=== PATIENT | female | born 1970 | race Caucasian/White ===

== ENCOUNTER 2023-11-11 11:18 | Emergency (ER) | payer OTHER ==
[~2023-11-11] VITALS: Ht 160 cm; Wt 113.6 kg
[2023-11-11 11:29] VITALS: TEMP 98.2
[2023-11-11] MEDS ORDERED: Ketorolac 30 MG/ML VIAL IV ONE (12:15)
[2023-11-11] MEDS ORDERED: Iohexol 300 - 100 ML VIAL IV ONE (12:30)
[2023-11-11] MEDS ORDERED: NS 100 ML IV SCH (12:33)
[2023-11-11 12:37] LABS: BASO # 0.1 K/mm3 (0.0-0.2); BASO % 0.5 % (0.0-2.0); EOS # 0.1 K/mm3 (0.0-0.7); EOS % 0.8 % (0.0-4.0); GRAN # 8.9 K/mm3 (1.4-6.5); GRAN % 76.8 % (42.2-75.2); HEMATOCRIT 45.1 % (37.0-47.0); LYMPH # 1.8 K/mm3 (1.2-3.4); LYMPH % 15.3 % (20.0-51.0); MEAN CELL VOLUME 93 fl (80.0-100.0); MEAN CORPUSCULAR HEMOGLOBIN 31 pg (27-31); MEAN CORPUSCULAR HGB CONC 33 g/dl (33.0-37.0); MEAN PLATELET VOLUME 11.7 fl (7.4-10.4); MONO # 0.7 K/mm3 (0.1-0.6); MONO % 5.7 % (1.7-9.3); PLATELET COUNT 250 K/mm3 (130-400); RED BLOOD COUNT 4.86 M/mm3 (4.10-5.30); REDCELL DISTRIBUTION WIDTH-CV 13.3 % (11.5-14.5)
[2023-11-11 12:51] LABS: ALANINE AMINOTRANSFERASE 26 U/L (0-55); ALBUMIN 3.7 g/dL (3.5-5.0); ALKALINE PHOSPHATASE 136 U/L (40-150); ANION GAP 8 mmol/L (7-16); AST,SGOT 23 U/L (5-34); BILIRUBIN,TOTAL 0.5 mg/dL (0.2-1.2); BLOOD UREA NITROGEN 11 mg/dL (10-20); CALCIUM 9.4 mg/dL (8.4-10.2); CHLORIDE 106 mEq/L (98-107); CREATININE, serum 1.04 mg/dL (0.57-1.11); GLUCOSE 105 mg/dL (70-99); LIPASE 26 U/L (8-78); POTASSIUM 3.5 mEq/L (3.5-4.5); SODIUM 137 mEq/L (136-145); TOTAL PROTEIN 7.8 g/dl (6.2-8.1)
[2023-11-11 13:04] LABS: TROPONIN-I < 0.010 ng/mL (0.00-0.033)
[2023-11-11] MEDS ORDERED: Mag/Al Hydrox/Simeth Susp 30 ML CUP PO ONE (13:30)
[2023-11-11] MEDS ORDERED: Ondansetron 4 MG/2 ML VIAL IV ONE (13:30)
[2023-11-11] MEDS ORDERED: ZOFRAN ODT4 MG PO (13:52)
[2023-11-11 14:07] VITALS: BP 166/108; PULSE 62
[2023-11-12] MEDS ORDERED: PROTONIX 40MG T40 MG PO (01:01)
[2023-11-12] MEDS ORDERED: BENTYL 20MG20 MG/TAB PO ×2 (01:01→01:59)
== END 2023-11-11 14:08 | disposition home or self-care (01) ==
LOC: COL.ER 11:18
PROVIDERS: Emergency Medicine
DX: K29.70 Gastritis, unspecified, without bleeding (principal); Z90.49 Acquired absence of other specified parts of digestive tract
CPT/HCPCS: J1885; J2405; Q9967

== ENCOUNTER 2023-11-11 23:05 | Emergency (ER) | payer OTHER ==
[~2023-11-11] VITALS: Ht 160 cm; Wt 116.0 kg
[~2023-11-11 23:05] MED LIST: ZOFRAN ODT4 MG PO
[2023-11-11 23:10] VITALS: TEMP 97
[2023-11-11] MEDS ORDERED: NS 1,000 ML IV ONE (23:45)
[2023-11-11] MEDS ORDERED: Ondansetron 4 MG/2 ML VIAL IV ONE (23:45)
[2023-11-11] MEDS ORDERED: Dicyclomine 10 MG CAP PO ONE (23:45)
[2023-11-12 00:07] LABS: BASO # 0.1 K/mm3 (0.0-0.2); BASO % 0.5 % (0.0-2.0); EOS # 0.1 K/mm3 (0.0-0.7); EOS % 1.1 % (0.0-4.0); GRAN % 78.8 % (42.2-75.2); HEMOGLOBIN 14.4 g/dl (12.5-16.0); LYMPH # 1.6 K/mm3 (1.2-3.4); LYMPH % 12.4 % (20.0-51.0); MEAN CELL VOLUME 93 fl (80.0-100.0); MEAN CORPUSCULAR HEMOGLOBIN 31 pg (27-31); MEAN CORPUSCULAR HGB CONC 34 g/dl (33.0-37.0); MEAN PLATELET VOLUME 11.5 fl (7.4-10.4); MONO # 0.8 K/mm3 (0.1-0.6); MONO % 6.6 % (1.7-9.3); PLATELET COUNT 239 K/mm3 (130-400); RED BLOOD COUNT 4.64 M/mm3 (4.10-5.30); REDCELL DISTRIBUTION WIDTH-CV 13.4 % (11.5-14.5)
[2023-11-12 00:20] LABS: ALBUMIN 3.6 g/dL (3.5-5.0); C-REACTIVE PROTEIN 0.38 mg/dL (0.00-0.50); CALCIUM 9.5 mg/dL (8.4-10.2); CREATININE, serum 1.21 mg/dL (0.57-1.11); MAGNESIUM 2.1 mg/dL (1.6-2.6); POTASSIUM 3.6 mEq/L (3.5-4.5); TOTAL PROTEIN 7.4 g/dl (6.2-8.1)
[2023-11-12 00:34] LABS: BILIRUBIN,TOTAL 0.4 mg/dL (0.2-1.2)
[2023-11-12] MEDS ORDERED: Pantoprazole 40 MG in NS 10 ML IV ONE (01:00)
[2023-11-12] MEDS ORDERED: NS 1,000 ML IV ONE (01:00)
[2023-11-12] MEDS ORDERED: BENTYL 20MG20 MG/TAB PO ×2 (01:01→01:59)
[2023-11-12] MEDS ORDERED: PROTONIX 40MG T40 MG PO (01:01)
[2023-11-12] MEDS ORDERED: Mag/Al Hydrox/Simeth Susp 30 ML CUP PO ONE (01:15)
[2023-11-12 01:20] LABS: COLLECTION METHOD CLEAN CATCH
[2023-11-12 01:28] LABS: PH 6.5 (5.0-8.5); URINE APPEARANCE CLEAR (CLEAR/HAZY); URINE BLOOD 1+ (NEGATIVE); URINE COLOR YELLOW (YELLOW); URINE GLUCOSE NEGATIVE (NEGATIVE); URINE KETONE NEGATIVE (NEGATIVE); URINE NITRATE NEGATIVE (NEGATIVE); URINE PROTEIN(semi-quant) NEGATIVE (NEGATIVE); URINE UROBILINOGEN 0.2 E.U/dL (0.2-1.0)
[2023-11-12 02:00] VITALS: BP 173/106; PULSE 63
[2023-11-12] MEDS ORDERED: Dicyclomine 10 MG CAP PO ONE (02:00)
== END 2023-11-12 02:00 | disposition home or self-care (01) ==
LOC: COL.ER 23:05
PROVIDERS: Emergency Medicine
DX: R10.10 Upper abdominal pain, unspecified (principal); R19.7 Diarrhea, unspecified; R11.0 Nausea; Z87.19 Personal history of other diseases of the digestive system; Z90.49 Acquired absence of other specified parts of digestive tract
CPT/HCPCS: C9113; J2405; J7030